=== PATIENT | female | born 1940 | race Caucasian/White ===

== ENCOUNTER → 2019-07-15 | Outpatient (CLI) | payer MEDICARE, BC ==
--- NOTE | 2019-07-15 14:34 | KCIC ---
MRI study of the right knee without contrast. Clinical indications: Chronic right knee pain since 2008. Pain is getting worse with new instability. TECHNIQUE: Noncontrast MRI sequences of the right knee were performed in all 3 planes. COMPARISON: None available. FINDINGS: There is diffuse increased signal and thickening of the anterior cruciate ligament which may be seen with mucinous degeneration. No complete tear of the ACL is seen. There are degenerative cysts of the underlying tibial spine. The posterior cruciate ligament is intact. The quadriceps and patellar tendons are intact. There is prepatellar soft tissue edema. There is mild swelling of the inferior retropatellar bursa. There is severe chondromalacia with loss of articular cartilage and prominent degenerative spurring of the lateral tibiofemoral joint compartment. There is stress reaction bone marrow edema of the lateral femoral condyle and lateral tibial plateau. No fracture line is seen. There is loss of elasticity of the lateral meniscus which is subluxed laterally in association with the degenerative spurs. There is degenerative signal abnormality of the body of the lateral meniscus. There is degenerative truncation of the inner articular edge of the body of the lateral meniscus. There is a tear of the anterior body of the lateral meniscus at the junction with the anterior horn. This tear extends mainly to the superior articular surface. There is an inferior articular surface tear of the posterior body of the medial meniscus at the junction with the posterior horn. There is mild chondromalacia and mild degenerative spurring of the medial tibiofemoral joint compartment. There is mild lateral subluxation of the patella. The trochlear groove to anterior tibial tubercle distance is 20 mm which is abnormal. Normal is less than 20 mm. There is moderate chondromalacia patellae involving the apex with subchondral cyst formation and the medial facet. Mild trochlear chondromalacia is seen. There is mild degenerative spurring of the patellofemoral joint compartment. The medial and lateral retinacular ligaments are intact. The medial collateral ligament is intact and no meniscocapsular separation is seen. The lateral collateral ligament complex and iliotibial band and popliteus tendon are intact. No posterior lateral corner injury is seen. No Narvaez's cyst is seen. There is a posterior periarticular ganglion cyst measuring 29 mm in size extending from the posterior aspect of the intercondylar notch just posterior to the posterior cruciate ligament. Small to moderate-sized knee joint effusion is seen. No loose body is evident. No muscle edema is seen. IMPRESSION: Multiple abnormalities as discussed above. See discussion above for detailed description. Tear of the lateral meniscus. Tear of the medial meniscus. 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 Mild lateral subluxation of the patella. Moderate chondromalacia patellae. Electronically signed by: Ken Barth MD (07/15/2019 2:31 PM) [id number]
== END | disposition home or self-care (01) ==
LOC: KCIC MRI 10:15
PROVIDERS: ATTEND Family Medicine
DX: S83.251A Bucket-handle tear of lateral meniscus, current injury, right knee, initial encounter (principal); S83.241A Other tear of medial meniscus, current injury, right knee, initial encounter; S83.011A Lateral subluxation of right patella, initial encounter; M25.461 Effusion, right knee; M67.461 Ganglion, right knee; X58.XXXA Exposure to other specified factors, initial encounter; Y93.89 Activity, other specified; Y92.89 Other specified places as the place of occurrence of the external cause; Y99.8 Other external cause status
CPT/HCPCS: 73721